=== PATIENT | female | born 1995 | race African-American/Black ===

== ENCOUNTER 2022-01-31 21:01 | Emergency (ER) | payer OTHER, SELFPAY ==
[2022-01-31 23:14] LABS: Bacteria/HPF None Seen HPF (None Seen); Bilirubin Negative (Negative); Blood, Urine Negative (Negative); Clarity Turbid (Clear); Glucose, Urine (Dipstick) Normal (Negative); Ketone, Urine Negative (Negative); Leukocyte 500 Leu/uL (Negative); Nitrite Negative (Negative); Protein, Urine (Dipstick) 20 mg/dL (Neg-Trace); Specific Gravity, Urine 1.034 (1.002-1.036); Squamous Epithelial 21-50 HPF (0-3); pH, Urine 6.5 (5.0-9.0)
[2022-01-31 23:17] LABS: Pregnancy Test - Urine (BHCG) Negative (Negative); Pregu Control Background? CLEAR/WHITE (CLR/WHITE); Pregu Control Bar Appear? YES (CONTROL BAR); Specific Gravity 1.034 (1.002-1.036)
== END 2022-02-01 00:56 | disposition home or self-care (01) ==
LOC: ERS 21:01
DX: R10.30 Lower abdominal pain, unspecified (principal)
CPT/HCPCS: 81003; 81015; 81025; 87086; 99284